=== PATIENT | male | born 2000 ===

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

== ENCOUNTER 2018-01-06 09:00 | Emergency (ER) | payer OTHER ==
[~2018-01-06] VITALS: Ht 182.9 cm; Wt 109.1 kg
[~2018-01-06 09:00] MED LIST changes: +CONCERTA54 MG PO
[2018-01-06 09:06] VITALS: BP 134/81; TEMP 98.3
[2018-01-06 09:55] VITALS: PULSE 99
== END 2018-01-06 09:55 | disposition home or self-care (01) ==
LOC: COL.ER 09:00
DX: S61.211A Laceration without foreign body of left index finger without damage to nail, initial encounter (principal); F90.9 Attention-deficit hyperactivity disorder, unspecified type; F17.210 Nicotine dependence, cigarettes, uncomplicated; W26.0XXA Contact with knife, initial encounter; Y92.009 Unspecified place in unspecified non-institutional (private) residence as the place of occurrence of the external cause

== ENCOUNTER 2018-01-16 13:46 | Emergency (ER) | payer OTHER ==
[2018-01-16 14:00] VITALS: PULSE 86
== END 2018-01-16 14:02 | disposition home or self-care (01) ==
LOC: COL.ER 13:46
DX: Z48.02 Encounter for removal of sutures (principal)

== ENCOUNTER 2020-02-17 08:41 | Emergency (ER) | payer SELFPAY ==
[~2020-02-17] VITALS: Ht 182.9 cm; Wt 113.6 kg
[2020-02-17 08:55] VITALS: BP 126/86; TEMP 99
[2020-02-17] MEDS ORDERED: PROAIR HFA0.09 MG/AC IH (12:34)
[2020-02-17 12:39] VITALS: PULSE 78
== END 2020-02-17 12:43 | disposition home or self-care (01) ==
LOC: COL.ER 08:41
DX: R05 Cough (principal); R06.02 Shortness of breath; Z20.828 Contact with and (suspected) exposure to other viral communicable diseases; F17.210 Nicotine dependence, cigarettes, uncomplicated; Z90.89 Acquired absence of other organs

== ENCOUNTER 2021-06-12 09:51 | Emergency (ER) | payer BC ==
[~2021-06-12] VITALS: Ht 182.9 cm; Wt 109.1 kg
[~2021-06-12 09:51] MED LIST changes: +PROAIR HFA0.09 MG/AC IH
[2021-06-12 09:58] VITALS: TEMP 98
[2021-06-12] MEDS ORDERED: PREDNISONE20 MG PO (11:31)
[2021-06-12 12:08] VITALS: BP 139/68; PULSE 114
== END 2021-06-12 12:08 | disposition home or self-care (01) ==
LOC: COL.ER
DX: J30.81 Allergic rhinitis due to animal (cat) (dog) hair and dander (principal); Z91.09 Other allergy status, other than to drugs and biological substances; Z20.822 Contact with and (suspected) exposure to COVID-19
CPT/HCPCS: J2930; J3475; J7030